=== PATIENT | male | born 1940 | race Caucasian/White ===

== ENCOUNTER 2024-02-15 10:40 | Inpatient (IN) | payer OTHER ==
[~2024-02-15] VITALS: Ht 180.3 cm; Wt 101.4 kg
[2024-02-15 11:43] LABS: BASOPHILS % (AUTO) 0.7 % (0.0-2.0); EOSINOPHILS % (AUTO) 0.9 % (1.0-6.0); HEMATOCRIT 48.1 % (41-53); HEMOGLOBIN 15.8 g/dL (13.5-17.5); LYMPHOCYTES # (AUTO) 0.7 K/uL (1.0-4.8); LYMPHOCYTES % (AUTO) 6.1 % (22.0-44.0); MEAN CORPUSCULAR HEMOGLOBIN 31.1 pg (26.0-34.0); MEAN CORPUSCULAR VOLUME 94 fL (80-100); MONOCYTES # (AUTO) 0.9 K/uL (0.1-1.0); MONOCYTES % (AUTO) 8.1 % (2.0-9.0); NEUTROPHILS # (AUTO) 9.3 K/uL (1.8-7.7); NEUTROPHILS % (AUTO) 84.2 % (40.0-70.0); PLATELET COUNT (AUTO) 329 K/uL (150-450); RED CELL DISTRIBUTION WIDTH 15.3 % (11.5-14.5)
[2024-02-15 11:57] LABS: INR 1.1 (0.9-1.1); PROTHROMBIN TIME 11.1 SEC (9.4-11.6)
[2024-02-15 11:58] LABS: ANION GAP 8 mmol/L (8-16); CALCIUM, TOTAL 8.1 mg/dL (8.8-10.5); CARBON DIOXIDE 27 mmol/L (22-29); CHLORIDE 105 mmol/L (98-107); CREATININE 1.07 mg/dL (0.60-1.30); GLOMERULAR FILTR. RATE CALC > 60 mL/min (>60); GLUCOSE,RANDOM 119 mg/dL (70-110); POTASSIUM 4.3 mmol/L (3.5-5.1); SODIUM SERUM 140 mmol/L (136-145); UREA NITROGEN, BLOOD 19 mg/dL (7-18)
[2024-02-15 12:03] LABS: TROPONIN I-HIGH SENSITIVITY 16 ng/L (<76)
[2024-02-15 12:04] LABS: B-TYPE NATRIURETIC PEPTIDE 110 pg/mL (0-100)
[2024-02-15 12:22] LABS: ALANINE AMINOTRANSFERASE 23 U/L (12-78); ALBUMIN 3.4 g/dL (3.4-5.0); ALKALINE PHOSPHATASE 97 U/L (46-116); ASPARTATE AMINOTRANSFERASE 28 U/L (15-37); CREATINE KINASE, TOTAL ONLY 121 U/L (39-308); TOTAL PROTEIN, SERUM 6.8 g/dL (6.4-8.2)
[2024-02-15] MEDS: LIDOCAINE 1% 10 ML VIAL PERC ONE (12:57)
[2024-02-15] MEDS: AMIODARONE HCL 200 MG TABLET PO ONE (14:02)
[2024-02-15] MEDS: DIGOXIN 125 MCG TABLET PO ONE (14:28)
[2024-02-15] MEDS: BACITRACIN 0.9 GM PACKET OINTMENT TP ONE (14:29)
[2024-02-15] MEDS ORDERED: MAGNESIUM HYDROXIDE SUSPENSION 30 ML UDCUP PO PRN (15:00)
[2024-02-15] MEDS ORDERED: BISACODYL 10 MG RECTAL RECTAL SUPPOSITORY PR PRN (15:00)
[2024-02-15] MEDS ORDERED: ACETAMINOPHEN 325 MG TABLET PO PRN (15:00)
[2024-02-15] MEDS ORDERED: ALBUTEROL SULFATE 2.5 MG/0.5 ML NEB SOLUTION NEB PRN (15:00)
[2024-02-15] MEDS ORDERED: ONDANSETRON HCL 4 MG/2 ML VIAL IVP PRN (15:00)
[2024-02-15] MEDS ORDERED: DOCUSATE SODIUM 100 MG CAPSULE PO PRN (15:00)
[2024-02-15] MEDS ORDERED: 0.9% SODIUM CHLORIDE 10 ML SYRINGE IVP PRN (15:00)
[2024-02-15] MEDS ORDERED: IPRATROPIUM BROMIDE 0.5 MG/2.5 ML NEB SOLUTION NEB PRN (15:00)
[2024-02-15 15:19] LABS: THYROID STIMULATING HORMONE 5.37 uIU/mL (0.36-3.74)
[2024-02-15 15:42] LABS: TROPONIN I-HIGH SENSITIVITY 26 ng/L (<76)
[2024-02-15 16:00] VITALS: BP 158/99; PULSE 75; RESP 20; TEMP 97.3
[2024-02-15] MEDS: DIGOXIN 250 MCG/ML 2 ML AMP IVP ONE ×2 (16:08→17:00)
[2024-02-15] MEDS: HEPARIN SODIUM,PORCINE 5,000 UNITS/ML VIAL SQ SCH (16:14)
[2024-02-15 21:15] VITALS: BP 144/82; PULSE 71; RESP 20; TEMP 97.2
[2024-02-16] VITALS (10 sets, daily range): BP systolic 111–138; BP diastolic 69–96; PULSE 68–104; RESP 18–21; TEMP 97.4–98.1; O2SAT 90–99
[2024-02-16 06:49] LABS: BASOPHILS % (AUTO) 0.5 % (0.0-2.0); EOSINOPHILS % (AUTO) 0.8 % (1.0-6.0); HEMATOCRIT 46.8 % (41-53); HEMOGLOBIN 15.6 g/dL (13.5-17.5); LYMPHOCYTES # (AUTO) 0.8 K/uL (1.0-4.8); LYMPHOCYTES % (AUTO) 9.4 % (22.0-44.0); MEAN CORPUSCULAR HEMOGLOBIN 31.1 pg (26.0-34.0); MEAN CORPUSCULAR HGB CONC 33.3 G/dL (31.0-37.0); MEAN CORPUSCULAR VOLUME 93 fL (80-100); MONOCYTES # (AUTO) 1.1 K/uL (0.1-1.0); MONOCYTES % (AUTO) 12.4 % (2.0-9.0); NEUTROPHILS # (AUTO) 6.8 K/uL (1.8-7.7); NEUTROPHILS % (AUTO) 76.9 % (40.0-70.0); PLATELET COUNT (AUTO) 346 K/uL (150-450); RED BLOOD CELL COUNT(AUTO) 5.01 MIL/uL (4.50-5.90); RED CELL DISTRIBUTION WIDTH 15.3 % (11.5-14.5); WHITE BLOOD COUNT (AUTO) 8.9 K/uL (4.5-11.0)
[2024-02-16 07:06] LABS: ALANINE AMINOTRANSFERASE 24 U/L (12-78); ALBUMIN 3.5 g/dL (3.4-5.0); ALKALINE PHOSPHATASE 94 U/L (46-116); ANION GAP 7 mmol/L (8-16); ASPARTATE AMINOTRANSFERASE 32 U/L (15-37); BILIRUBIN,TOTAL 1.5 mg/dL (0.1-1.0); CALCIUM, TOTAL 8.9 mg/dL (8.8-10.5); CARBON DIOXIDE 31 mmol/L (22-29); CHLORIDE 104 mmol/L (98-107); CREATININE 0.93 mg/dL (0.60-1.30); GLOMERULAR FILTR. RATE CALC > 60 mL/min (>60); GLUCOSE,RANDOM 98 mg/dL (70-110); POTASSIUM 4.6 mmol/L (3.5-5.1); SODIUM SERUM 142 mmol/L (136-145); TOTAL PROTEIN, SERUM 7.5 g/dL (6.4-8.2); UREA NITROGEN, BLOOD 14 mg/dL (7-18)
[2024-02-16] MEDS: IPRATROPIUM BROMIDE 0.5 MG/2.5 ML NEB SOLUTION NEB SCH (08:24)
[2024-02-16] MEDS: ALBUTEROL SULFATE 2.5 MG/0.5 ML NEB SOLUTION NEB SCH (08:24)
[2024-02-17] VITALS (9 sets, daily range): BP systolic 91–121; BP diastolic 57–87; PULSE 60–117; RESP 18–21; TEMP 97.9–98.7; O2SAT 90–96
[2024-02-17] MEDS ORDERED: SODIUM CL IRRIG SOLN BOTTLE 250 ML IRRIG ONE (11:47)
[2024-02-17] MEDS: CARVEDILOL 3.125 MG TABLET PO SCH (12:53)
[2024-02-17] MEDS: FUROSEMIDE 20 MG/2 ML VIAL IVP SCH (12:53)
[2024-02-18] VITALS (10 sets, daily range): BP systolic 98–112; BP diastolic 43–62; PULSE 59–108; RESP 17–18; TEMP 97.5–98.4; O2SAT 95–98
[2024-02-18 07:14] LABS: BASOPHILS % (AUTO) 0.4 % (0.0-2.0); EOSINOPHILS % (AUTO) 0.9 % (1.0-6.0); HEMATOCRIT 46.6 % (41-53); HEMOGLOBIN 15.6 g/dL (13.5-17.5); LYMPHOCYTES # (AUTO) 1.1 K/uL (1.0-4.8); MEAN CORPUSCULAR HEMOGLOBIN 31.1 pg (26.0-34.0); MEAN CORPUSCULAR HGB CONC 33.4 G/dL (31.0-37.0); MEAN CORPUSCULAR VOLUME 93 fL (80-100); MONOCYTES # (AUTO) 1.6 K/uL (0.1-1.0); MONOCYTES % (AUTO) 12.2 % (2.0-9.0); NEUTROPHILS # (AUTO) 10.4 K/uL (1.8-7.7); NEUTROPHILS % (AUTO) 78.5 % (40.0-70.0); PLATELET COUNT (AUTO) 398 K/uL (150-450); RED CELL DISTRIBUTION WIDTH 15.2 % (11.5-14.5); WHITE BLOOD COUNT (AUTO) 13.3 K/uL (4.5-11.0)
[2024-02-18 07:21] LABS: ALBUMIN 3.6 g/dL (3.4-5.0); BILIRUBIN,TOTAL 1.9 mg/dL (0.1-1.0); CREATININE 1.15 mg/dL (0.60-1.30); POTASSIUM 4.6 mmol/L (3.5-5.1); TOTAL PROTEIN, SERUM 7.4 g/dL (6.4-8.2)
[2024-02-19] VITALS (9 sets, daily range): BP systolic 95–143; BP diastolic 62–76; PULSE 67–87; RESP 18–20; TEMP 97.8–97.9; O2SAT 90–96
[2024-02-20] VITALS (8 sets, daily range): BP systolic 104–127; BP diastolic 51–58; PULSE 61–84; RESP 15–19; TEMP 97.5–98.2; O2SAT 94–95
[2024-02-20 10:46] LABS: BASOPHILS % (AUTO) 0.6 % (0.0-2.0); EOSINOPHILS % (AUTO) 2.3 % (1.0-6.0); HEMOGLOBIN 15.4 g/dL (13.5-17.5); LYMPHOCYTES # (AUTO) 0.9 K/uL (1.0-4.8); LYMPHOCYTES % (AUTO) 9.8 % (22.0-44.0); MEAN CORPUSCULAR HEMOGLOBIN 30.9 pg (26.0-34.0); MEAN CORPUSCULAR HGB CONC 32.9 G/dL (31.0-37.0); MEAN CORPUSCULAR VOLUME 94 fL (80-100); MONOCYTES # (AUTO) 1.2 K/uL (0.1-1.0); MONOCYTES % (AUTO) 12.8 % (2.0-9.0); NEUTROPHILS # (AUTO) 6.8 K/uL (1.8-7.7); NEUTROPHILS % (AUTO) 74.5 % (40.0-70.0); PLATELET COUNT (AUTO) 382 K/uL (150-450); RED BLOOD CELL COUNT(AUTO) 4.99 MIL/uL (4.50-5.90); WHITE BLOOD COUNT (AUTO) 9.1 K/uL (4.5-11.0)
[2024-02-20 10:53] LABS: ANION GAP 5 mmol/L (8-16); CALCIUM, TOTAL 8.8 mg/dL (8.8-10.5); CARBON DIOXIDE 35 mmol/L (22-29); CHLORIDE 103 mmol/L (98-107); CREATININE 1.11 mg/dL (0.60-1.30); GLOMERULAR FILTR. RATE CALC > 60 mL/min (>60); GLUCOSE,RANDOM 79 mg/dL (70-110); POTASSIUM 4.2 mmol/L (3.5-5.1); SODIUM SERUM 143 mmol/L (136-145); UREA NITROGEN, BLOOD 39 mg/dL (7-18)
[2024-02-21 06:30] VITALS: BP 117/56; PULSE 77; RESP 18; TEMP 97.8
[2024-02-21 08:00] VITALS: PULSE 86; PULSE 9; RESP 16; RESP 18; O2SAT 94; O2SAT 95
[2024-02-21 08:17] VITALS: BP 138/81; PULSE 75; RESP 18; TEMP 97.7
[2024-02-21] MEDS: LEVOFLOXACIN 500 MG TABLET PO SCH (11:11)
[2024-02-21 15:46] VITALS: BP 118/65; PULSE 77; RESP 18; TEMP 98
[2024-02-21 20:04] VITALS: BP 102/61; PULSE 66; RESP 18; TEMP 97.7
[2024-02-21 21:10] VITALS: BP 131/50; PULSE 79; RESP 20
[2024-02-22 04:33] VITALS: BP 121/70; PULSE 62; RESP 18; TEMP 98.1
[2024-02-22 07:28] LABS: EOSINOPHILS % (AUTO) 2.6 % (1.0-6.0); HEMOGLOBIN 16.2 g/dL (13.5-17.5); LYMPHOCYTES # (AUTO) 1.1 K/uL (1.0-4.8); LYMPHOCYTES % (AUTO) 11.2 % (22.0-44.0); MEAN CORPUSCULAR HEMOGLOBIN 31.3 pg (26.0-34.0); MEAN CORPUSCULAR HGB CONC 33.7 G/dL (31.0-37.0); MEAN CORPUSCULAR VOLUME 93 fL (80-100); MONOCYTES # (AUTO) 1.3 K/uL (0.1-1.0); MONOCYTES % (AUTO) 13.5 % (2.0-9.0); NEUTROPHILS # (AUTO) 6.9 K/uL (1.8-7.7); NEUTROPHILS % (AUTO) 71.7 % (40.0-70.0); PLATELET COUNT (AUTO) 456 K/uL (150-450); RED BLOOD CELL COUNT(AUTO) 5.18 MIL/uL (4.50-5.90); RED CELL DISTRIBUTION WIDTH 14.8 % (11.5-14.5); WHITE BLOOD COUNT (AUTO) 9.7 K/uL (4.5-11.0)
[2024-02-22 07:43] LABS: ANION GAP 6 mmol/L (8-16); CALCIUM, TOTAL 9.7 mg/dL (8.8-10.5); CARBON DIOXIDE 36 mmol/L (22-29); CHLORIDE 99 mmol/L (98-107); CREATININE 1.13 mg/dL (0.60-1.30); GLOMERULAR FILTR. RATE CALC > 60 mL/min (>60); GLUCOSE,RANDOM 103 mg/dL (70-110); POTASSIUM 4.5 mmol/L (3.5-5.1); SODIUM SERUM 141 mmol/L (136-145); UREA NITROGEN, BLOOD 34 mg/dL (7-18)
[2024-02-22 08:00] VITALS: BP 122/79; PULSE 51; RESP 18; TEMP 97.4
[2024-02-22 09:50] VITALS: PULSE 83; RESP 18; O2SAT 92
[2024-02-22 10:05] VITALS: PULSE 80; RESP 16; O2SAT 95
[2024-02-22 12:27] VITALS: BP 104/71; PULSE 62; RESP 18; TEMP 97
[2024-02-24] MEDS ORDERED: FUROSEMIDE 20 MG TABLET PO SCH (09:00)
== END 2024-02-22 13:13 | DRG 605 ==
LOC: EMS 10:41 → 5S 14:16 → 6S 02-19 18:31
PROVIDERS: ADMIT Internal Medicine; ATTEND Internal Medicine
PROC: 0HQNXZZ Repair Left Foot Skin, External Approach (ICD-10-PCS; principal; 2024-02-17)
DX: S91.312A Laceration without foreign body, left foot, initial encounter (principal); L03.115 Cellulitis of right lower limb; I48.91 Unspecified atrial fibrillation; I25.5 Ischemic cardiomyopathy; F03.90 Unspecified dementia, unspecified severity, without behavioral disturbance, psychotic disturbance, mood disturbance, and anxiety; J44.9 Chronic obstructive pulmonary disease, unspecified; I25.10 Atherosclerotic heart disease of native coronary artery without angina pectoris; Z87.891 Personal history of nicotine dependence; W18.30XA Fall on same level, unspecified, initial encounter; Y93.89 Activity, other specified; Y92.89 Other specified places as the place of occurrence of the external cause; Y99.8 Other external cause status
CPT/HCPCS: 71045; 80048; 80053; 82550; 83880; 84145; 84443; 84484; 85025; 85610; 85730; 87070; 87186; 87205; 92610; 93005; 93306; 94640; 97110; 97116; 97162; 97167; 97530; 97535; 99285; G0378; J1160; J1644; J1940; J3490; 36415-L1; 36415-TC; J7613